=== PATIENT | male | born 1940 | race Caucasian/White ===

== ENCOUNTER 2019-03-13 16:46 | Inpatient (IN) | payer OTHER ==
[2019-03-13 17:33] LABS: ADD MAN DIFF? NO
[2019-03-13 17:34] LABS: BASOPHILS % 0.2 % (0.0-2.0); HEMATOCRIT 29.8 % (42.0-52.0); HEMOGLOBIN 9.4 g/dl (14.0-18.0); LYMPHOCYTES # 1.1 10^3/ul (0.8-2.9); LYMPHOCYTES % 5.1 % (15.0-51.0); MEAN CORPUSCULAR HEMOGLOBIN 24.9 pg (29.0-33.0); MEAN CORPUSCULAR HGB CONC 31.5 g/dl (32.0-37.0); MEAN CORPUSCULAR VOLUME 78.8 fl (82.0-101.0); MEAN PLATELET VOLUME 11.3 fl (7.4-10.4); MONOCYTE # 0.9 10^3/ul (0.3-0.9); MONOCYTES % 4.1 % (0.0-11.0); NEUTROPHIL # 19.4 10^3/ul (1.6-7.5); NEUTROPHILS % 88.3 % (39.0-77.0); PLATELET COUNT 265 10^3/UL (140-415); RED BLOOD COUNT 3.78 10^6/ul (4.70-6.10); RED CELL DISTRIBUTION WIDTH 18.7 % (11.5-14.5)
[2019-03-13] MEDS: ONDANSETRON 4 MG INJ IV ×2 (17:34→18:48)
[2019-03-13] MEDS: morphine 4 MG/ML VIAL IV (17:34)
[2019-03-13] MEDS: CEFTRIAXONE 1 GM/50 ML (PMX) 50 ML IVPB (17:46)
[2019-03-13] MEDS: SODIUM CHLORIDE 0.9% 1L BAG IV* (17:46)
[2019-03-13 17:52] LABS: ANION GAP 14 (5-13); BLOOD UREA NITROGEN 27 mg/dl (7-20); CALCIUM 9.4 mg/dl (8.4-10.2); CARBON DIOXIDE 18 mmol/L (21-31); CHLORIDE 104 mmol/L (97-110); CREATININE 2.74 mg/dl (0.61-1.24); GLUCOSE 124 mg/dl (70-220); SODIUM 136 mmol/L (135-144)
[2019-03-13 17:53] LABS: INR 1.15; PROTIME 14.8 Sec (11.9-14.9); PT RATIO 1.2
[2019-03-13 17:54] LABS: PARTIAL THROMBOPLASTIN TIME 41.7 Sec (23.0-35.0)
[2019-03-13 17:58] LABS: POTASSIUM 5.4 mmol/L (3.5-5.1)
[2019-03-13] MEDS: ACETAMINOPHEN 325 MG TAB PO (18:48)
[2019-03-13 19:10] LABS: LACTIC ACID 1.2 mmol/L (0.5-2.0)
[2019-03-13] MEDS ORDERED: ZOLPIDEM 5 MG TAB PO (23:00)
[2019-03-13 23:13] LABS: LACTIC ACID 1.1 mmol/L (0.5-2.0)
[2019-03-13 23:19] LABS: ADD UMIC YES; UR ASCORBIC ACID NEGATIVE (NEGATIVE); UR BILIRUBIN (Dip) NEGATIVE (NEGATIVE); UR BLOOD (Dip) 3+ mg/dL (NEGATIVE); UR CLARITY CLOUDY (CLEAR); UR COLOR RED (YELLOW); UR GLUCOSE (Dip) NEGATIVE (NEGATIVE); UR KETONES (Dip) NEGATIVE (NEGATIVE); UR LEUKOCYTE ESTERASE (Dip) 1+ Leu/ul (NEGATIVE); UR NITRITE (Dip) NEGATIVE (NEGATIVE); UR RBC > 182 /HPF (0-5); UR SPECIFIC GRAVITY (Dip) 1.004 (1.003-1.030); UR TOTAL PROTEIN (Dip) 1+ mg/dl (NEGATIVE); UR UROBILINOGEN (Dip) NEGATIVE (NEGATIVE); UR WBC 0 /HPF (0-5)
[2019-03-13] MEDS: DEXTROSE 5%-0.45% NACL 1,000 ML IV (23:54)
[2019-03-14 05:46] LABS: ADD MAN DIFF? NO
[2019-03-14 05:51] LABS: BASOPHIL # 0.1 10^3/ul (0.0-0.1); BASOPHILS % 0.5 % (0.0-2.0); EOSINOPHILS # 0.1 10^3/ul (0.0-0.5); EOSINOPHILS % 1.1 % (0.0-7.0); HEMATOCRIT 24.8 % (42.0-52.0); HEMOGLOBIN 7.6 g/dl (14.0-18.0); LYMPHOCYTES # 1.6 10^3/ul (0.8-2.9); LYMPHOCYTES % 14.8 % (15.0-51.0); MEAN CORPUSCULAR HEMOGLOBIN 24.6 pg (29.0-33.0); MEAN CORPUSCULAR HGB CONC 30.6 g/dl (32.0-37.0); MEAN CORPUSCULAR VOLUME 80.3 fl (82.0-101.0); MEAN PLATELET VOLUME 11.7 fl (7.4-10.4); MONOCYTE # 0.8 10^3/ul (0.3-0.9); MONOCYTES % 7.3 % (0.0-11.0); NEUTROPHIL # 8.2 10^3/ul (1.6-7.5); NEUTROPHILS % 74.2 % (39.0-77.0); PLATELET COUNT 178 10^3/UL (140-415); RED BLOOD COUNT 3.09 10^6/ul (4.70-6.10); RED CELL DISTRIBUTION WIDTH 19.1 % (11.5-14.5)
[2019-03-14 06:28] LABS: ANION GAP 7 (5-13); BLOOD UREA NITROGEN 24 mg/dl (7-20); CALCIUM 8.2 mg/dl (8.4-10.2); CARBON DIOXIDE 19 mmol/L (21-31); CHLORIDE 112 mmol/L (97-110); GLUCOSE 109 mg/dl (70-220); POTASSIUM 4.5 mmol/L (3.5-5.1); SODIUM 138 mmol/L (135-144)
[2019-03-14] MEDS ORDERED: CEFTRIAXONE 1 GM INJ IVPB (09:00)
[2019-03-14] MEDS: AMLODIPINE 10 MG TAB PO (09:00)
[2019-03-14] MEDS: DEXTROSE 5%-0.45% NACL 1,000 ML IV (13:09)
[2019-03-14] MEDS: ACETAMINOPHEN 325 MG TAB PO ×2 (14:14→23:26)
[2019-03-14] MEDS: CEFTRIAXONE 1 GM/NS 50 ML IVPB (16:27)
[2019-03-15] MEDS ORDERED: VANCOMYCIN IV PER PHARMACY XX (01:30)
[2019-03-15] MEDS: DEXTROSE 5%-0.45% NACL 1,000 ML IV ×2 (01:40→03:07)
[2019-03-15] MEDS: VANCOMYCIN HCL 1.75 GM in SOD CHLORIDE 0.9% 500 ML IVPB (03:06)
[2019-03-15 06:05] LABS: ADD MAN DIFF? NO
[2019-03-15 06:07] LABS: BASOPHIL # 0.1 10^3/ul (0.0-0.1); BASOPHILS % 0.6 % (0.0-2.0); EOSINOPHILS # 0.2 10^3/ul (0.0-0.5); EOSINOPHILS % 2.8 % (0.0-7.0); HEMATOCRIT 26.8 % (42.0-52.0); HEMOGLOBIN 8.2 g/dl (14.0-18.0); LYMPHOCYTES # 1.3 10^3/ul (0.8-2.9); MEAN CORPUSCULAR HEMOGLOBIN 25.1 pg (29.0-33.0); MEAN CORPUSCULAR HGB CONC 30.6 g/dl (32.0-37.0); MEAN PLATELET VOLUME 12.6 fl (7.4-10.4); MONOCYTE # 0.6 10^3/ul (0.3-0.9); MONOCYTES % 7.2 % (0.0-11.0); NEUTROPHIL # 5.6 10^3/ul (1.6-7.5); NEUTROPHILS % 69.8 % (39.0-77.0); PLATELET COUNT 203 10^3/UL (140-415); RED BLOOD COUNT 3.27 10^6/ul (4.70-6.10); RED CELL DISTRIBUTION WIDTH 18.6 % (11.5-14.5)
[2019-03-15] MEDS: ACETAMINOPHEN 325 MG TAB PO (07:39)
[2019-03-15] MEDS: AMLODIPINE 10 MG TAB PO (09:33)
[2019-03-15 15:28] LABS: IMMEDIATE SPIN CROSSMATCH 1 1
[2019-03-15] MEDS: ALPRAZOLAM 0.5 MG TAB PO (16:42)
[2019-03-15] MEDS: CEFTRIAXONE 1 GM/NS 50 ML IVPB (18:36)
[2019-03-16] MEDS: VANCOMYCIN 750 MG (PMX) 250 ML IVPB (03:11)
[2019-03-16] MEDS: DEXTROSE 5%-0.45% NACL 1,000 ML IV ×3 (03:11→22:07)
[2019-03-16 05:26] LABS: ADD MAN DIFF? NO
[2019-03-16 05:35] LABS: BASOPHILS % 0.5 % (0.0-2.0); EOSINOPHILS # 0.2 10^3/ul (0.0-0.5); EOSINOPHILS % 2.6 % (0.0-7.0); HEMATOCRIT 28.6 % (42.0-52.0); HEMOGLOBIN 8.9 g/dl (14.0-18.0); LYMPHOCYTES # 1.5 10^3/ul (0.8-2.9); LYMPHOCYTES % 16.8 % (15.0-51.0); MEAN CORPUSCULAR HEMOGLOBIN 24.9 pg (29.0-33.0); MEAN CORPUSCULAR HGB CONC 31.1 g/dl (32.0-37.0); MEAN CORPUSCULAR VOLUME 80.1 fl (82.0-101.0); MEAN PLATELET VOLUME 11.7 fl (7.4-10.4); MONOCYTE # 0.6 10^3/ul (0.3-0.9); MONOCYTES % 7.1 % (0.0-11.0); NEUTROPHILS % 68.7 % (39.0-77.0); PLATELET COUNT 232 10^3/UL (140-415); RED BLOOD COUNT 3.57 10^6/ul (4.70-6.10); RED CELL DISTRIBUTION WIDTH 18.4 % (11.5-14.5)
[2019-03-16 05:35] LABS: WHITE BLOOD COUNT 8.8 10^3/ul (4.8-10.8)
[2019-03-16 06:03] LABS: ANION GAP 9 (5-13); BLOOD UREA NITROGEN 14 mg/dl (7-20); CARBON DIOXIDE 25 mmol/L (21-31); CHLORIDE 107 mmol/L (97-110); CREATININE 1.22 mg/dl (0.61-1.24); GLUCOSE 110 mg/dl (70-220); POTASSIUM 4.5 mmol/L (3.5-5.1); SODIUM 141 mmol/L (135-144)
[2019-03-16] MEDS: AMLODIPINE 10 MG TAB PO (08:49)
[2019-03-16] MEDS: NA PHOSPHATE/BIPHOS 133 ML ENEMA PR (10:27)
[2019-03-16] MEDS: LACTULOSE 30ML CUP PO ×2 (10:27→10:28)
[2019-03-16] MEDS: CEFTRIAXONE 1 GM/NS 50 ML IVPB (16:03)
[2019-03-16] MEDS: VANCOMYCIN 1 GM 250 ML IVPB (22:07)
[2019-03-17 05:25] LABS: ADD MAN DIFF? NO
[2019-03-17 05:35] LABS: BASOPHIL # 0.1 10^3/ul (0.0-0.1); BASOPHILS % 0.8 % (0.0-2.0); EOSINOPHILS # 0.3 10^3/ul (0.0-0.5); EOSINOPHILS % 3.5 % (0.0-7.0); HEMATOCRIT 28.6 % (42.0-52.0); HEMOGLOBIN 8.9 g/dl (14.0-18.0); LYMPHOCYTES # 1.6 10^3/ul (0.8-2.9); LYMPHOCYTES % 19.6 % (15.0-51.0); MEAN CORPUSCULAR HEMOGLOBIN 25.3 pg (29.0-33.0); MEAN CORPUSCULAR HGB CONC 31.1 g/dl (32.0-37.0); MEAN CORPUSCULAR VOLUME 81.3 fl (82.0-101.0); MEAN PLATELET VOLUME 11.8 fl (7.4-10.4); MONOCYTE # 0.6 10^3/ul (0.3-0.9); MONOCYTES % 8.1 % (0.0-11.0); NEUTROPHILS % 63.5 % (39.0-77.0); PLATELET COUNT 237 10^3/UL (140-415); RED BLOOD COUNT 3.52 10^6/ul (4.70-6.10); RED CELL DISTRIBUTION WIDTH 18.4 % (11.5-14.5)
[2019-03-17 05:35] LABS: WHITE BLOOD COUNT 7.9 10^3/ul (4.8-10.8)
[2019-03-17] MEDS: DEXTROSE 5%-0.45% NACL 1,000 ML IV (07:00)
[2019-03-17] MEDS: AMLODIPINE 10 MG TAB PO (08:42)
[2019-03-17] MEDS: CEFTRIAXONE 1 GM/NS 50 ML IVPB (15:27)
== END 2019-03-17 18:10 | disposition home health service (06) | DRG 696 ==
LOC: E/R 16:46 → PP2 18:03
PROC: 30233N1 Transfusion of Nonautologous Red Blood Cells into Peripheral Vein, Percutaneous Approach (ICD-10-PCS; principal; 2019-03-15)
DX: R31.0 Gross hematuria (principal); D62 Acute posthemorrhagic anemia; N45.1 Epididymitis; N17.9 Acute kidney failure, unspecified; Z90.79 Acquired absence of other genital organ(s); I10 Essential (primary) hypertension; M10.9 Gout, unspecified
CPT/HCPCS: 36415; 36430; 76870; 80048; 81001; 83605; 85025; 85610; 85730; 86644; 86850; 86870; 86880; 86900; 86901; 86902; 86906; 86920; 86971; 87040-91; 87081; 87086; 96374; 96375; 99285-25

== ENCOUNTER 2019-03-19 00:46 | Emergency (ER) | payer OTHER | END 2019-03-19 01:59 | disposition home or self-care (01) | LOC: E/R 00:46 | DX: R31.0 Gross hematuria (principal); I10 Essential (primary) hypertension | CPT/HCPCS: 99283 ==

== ENCOUNTER 2019-03-19 01:55 | Inpatient (IN) | payer OTHER ==
[2019-03-19 02:55] LABS: ADD MAN DIFF? NO
[2019-03-19] MEDS: morphine 4 MG/ML VIAL IV (02:55)
[2019-03-19] MEDS: ONDANSETRON 4 MG INJ IV (02:55)
[2019-03-19 02:58] LABS: WHITE BLOOD COUNT 17.7 10^3/ul (4.8-10.8)
[2019-03-19 02:58] LABS: BASOPHIL # 0.1 10^3/ul (0.0-0.1); BASOPHILS % 0.3 % (0.0-2.0); EOSINOPHILS # 0.1 10^3/ul (0.0-0.5); EOSINOPHILS % 0.7 % (0.0-7.0); HEMATOCRIT 29.1 % (42.0-52.0); HEMOGLOBIN 9.2 g/dl (14.0-18.0); LYMPHOCYTES # 1.8 10^3/ul (0.8-2.9); LYMPHOCYTES % 10.1 % (15.0-51.0); MEAN CORPUSCULAR HEMOGLOBIN 25.2 pg (29.0-33.0); MEAN CORPUSCULAR HGB CONC 31.6 g/dl (32.0-37.0); MEAN CORPUSCULAR VOLUME 79.7 fl (82.0-101.0); MEAN PLATELET VOLUME 11.4 fl (7.4-10.4); MONOCYTES % 5.4 % (0.0-11.0); NEUTROPHILS % 78.8 % (39.0-77.0); PLATELET COUNT 279 10^3/UL (140-415); RED BLOOD COUNT 3.65 10^6/ul (4.70-6.10); RED CELL DISTRIBUTION WIDTH 18.6 % (11.5-14.5)
[2019-03-19] MEDS ORDERED: ONDANSETRON 4 MG INJ IV (03:00)
[2019-03-19] MEDS ORDERED: ACETAMINOPHEN 325 MG TAB PO (03:00)
[2019-03-19 03:16] LABS: ANION GAP 13 (5-13); BLOOD UREA NITROGEN 36 mg/dl (7-20); CALCIUM 9.5 mg/dl (8.4-10.2); CARBON DIOXIDE 19 mmol/L (21-31); CHLORIDE 105 mmol/L (97-110); CREATININE 2.18 mg/dl (0.61-1.24); GLUCOSE 110 mg/dl (70-220); SODIUM 137 mmol/L (135-144)
[2019-03-19 03:17] LABS: PROTIME 14.3 Sec (11.9-14.9); PT RATIO 1.1
[2019-03-19 03:18] LABS: PARTIAL THROMBOPLASTIN TIME 40.8 Sec (23.0-35.0)
[2019-03-19] MEDS ORDERED: SODIUM CHLORIDE 0.9% 1L IRRIG IRR ×3 (03:30→05:00)
[2019-03-19 03:31] LABS: POTASSIUM 4.8 mmol/L (3.5-5.1)
[2019-03-19] MEDS: HYDROmorphONE 0.5 MG/0.5 ML SYG IV (03:36)
[2019-03-19 03:42] LABS: ADD UMIC YES; UR ASCORBIC ACID NEGATIVE (NEGATIVE); UR BACTERIA FEW /HPF (NONE SEEN); UR BILIRUBIN (Dip) NEGATIVE (NEGATIVE); UR BLOOD (Dip) 3+ mg/dL (NEGATIVE); UR CLARITY TURBID (CLEAR); UR COLOR RED (YELLOW); UR GLUCOSE (Dip) 2+ mg/dL (NEGATIVE); UR KETONES (Dip) NEGATIVE (NEGATIVE); UR LEUKOCYTE ESTERASE (Dip) NEGATIVE Leu/ul (NEGATIVE); UR NITRITE (Dip) NEGATIVE (NEGATIVE); UR RBC > 182 /HPF (0-5); UR SPECIFIC GRAVITY (Dip) 1.034 (1.003-1.030); UR TOTAL PROTEIN (Dip) 3+ mg/dl (NEGATIVE); UR UROBILINOGEN (Dip) NEGATIVE (NEGATIVE); UR WBC 13 /HPF (0-5)
[2019-03-19] MEDS: LORAZEPAM 2 MG INJ IV (04:11)
[2019-03-19] MEDS ORDERED: SODIUM CHLORIDE 0.9% IRR (05:30)
[2019-03-19] MEDS ORDERED: CEFTRIAXONE 1 GM/50 ML (PMX) 50 ML IVPB (08:30)
[2019-03-19] MEDS: CEFTRIAXONE 1 GM/50 ML (PMX) 50 ML IVPB (09:21)
[2019-03-19] MEDS: morphine 2 MG INJ IV (09:22)
[2019-03-19] MEDS: ALLOPURINOL 300 MG TAB PO (09:23)
[2019-03-19] MEDS: AMLODIPINE 10 MG TAB PO (09:24)
[2019-03-19] MEDS: FINASTERIDE 5 MG TAB PO (09:24)
[2019-03-19] MEDS: LISINOPRIL 20 MG TAB PO (09:24)
[2019-03-19 10:05] LABS: INR 1.19; PROTIME 15.2 Sec (11.9-14.9); PT RATIO 1.2
[2019-03-19 10:06] LABS: PARTIAL THROMBOPLASTIN TIME 40.1 Sec (23.0-35.0)
[2019-03-19] MEDS: BELLADONNA ALK/OPIUM SUPP PR (10:28)
[2019-03-19 16:00] LABS: ADD MAN DIFF? NO
[2019-03-19 16:02] LABS: BASOPHILS % 0.3 % (0.0-2.0); EOSINOPHILS # 0.2 10^3/ul (0.0-0.5); EOSINOPHILS % 1.3 % (0.0-7.0); HEMATOCRIT 26.3 % (42.0-52.0); HEMOGLOBIN 8.1 g/dl (14.0-18.0); LYMPHOCYTES # 2.1 10^3/ul (0.8-2.9); LYMPHOCYTES % 17.6 % (15.0-51.0); MEAN CORPUSCULAR HEMOGLOBIN 25.2 pg (29.0-33.0); MEAN CORPUSCULAR HGB CONC 30.8 g/dl (32.0-37.0); MEAN CORPUSCULAR VOLUME 81.9 fl (82.0-101.0); MEAN PLATELET VOLUME 11.7 fl (7.4-10.4); MONOCYTE # 0.9 10^3/ul (0.3-0.9); MONOCYTES % 7.3 % (0.0-11.0); NEUTROPHIL # 8.4 10^3/ul (1.6-7.5); NEUTROPHILS % 69.9 % (39.0-77.0); PLATELET COUNT 214 10^3/UL (140-415); RED BLOOD COUNT 3.21 10^6/ul (4.70-6.10); RED CELL DISTRIBUTION WIDTH 18.8 % (11.5-14.5)
[2019-03-19 16:02] LABS: WHITE BLOOD COUNT 12.1 10^3/ul (4.8-10.8)
[2019-03-19] MEDS: TAMSULOSIN (SR) 0.4 MG CAP PO (20:16)
[2019-03-20 08:40] LABS: ADD MAN DIFF? NO
[2019-03-20 08:48] LABS: BASOPHILS % 0.6 % (0.0-2.0); EOSINOPHILS # 0.2 10^3/ul (0.0-0.5); EOSINOPHILS % 3.5 % (0.0-7.0); HEMATOCRIT 25.3 % (42.0-52.0); HEMOGLOBIN 7.8 g/dl (14.0-18.0); LYMPHOCYTES # 1.2 10^3/ul (0.8-2.9); LYMPHOCYTES % 17.7 % (15.0-51.0); MEAN CORPUSCULAR HEMOGLOBIN 25.6 pg (29.0-33.0); MEAN CORPUSCULAR HGB CONC 30.8 g/dl (32.0-37.0); MEAN PLATELET VOLUME 11.7 fl (7.4-10.4); MONOCYTE # 0.5 10^3/ul (0.3-0.9); MONOCYTES % 7.3 % (0.0-11.0); NEUTROPHIL # 4.3 10^3/ul (1.6-7.5); NEUTROPHILS % 66.9 % (39.0-77.0); PLATELET COUNT 201 10^3/UL (140-415); RED BLOOD COUNT 3.05 10^6/ul (4.70-6.10); RED CELL DISTRIBUTION WIDTH 18.7 % (11.5-14.5)
[2019-03-20 08:48] LABS: WHITE BLOOD COUNT 6.5 10^3/ul (4.8-10.8)
[2019-03-20 09:05] LABS: PROTIME 14.1 Sec (11.9-14.9)
[2019-03-20 09:06] LABS: PARTIAL THROMBOPLASTIN TIME 42.1 Sec (23.0-35.0)
[2019-03-20 09:19] LABS: ANION GAP 7 (5-13); BLOOD UREA NITROGEN 39 mg/dl (7-20); CALCIUM 8.8 mg/dl (8.4-10.2); CARBON DIOXIDE 23 mmol/L (21-31); CHLORIDE 107 mmol/L (97-110); CREATININE 2.02 mg/dl (0.61-1.24); GLUCOSE 100 mg/dl (70-220); POTASSIUM 5.2 mmol/L (3.5-5.1); SODIUM 137 mmol/L (135-144)
[2019-03-20] MEDS: CEFTRIAXONE 1 GM/50 ML (PMX) 50 ML IVPB (09:23)
[2019-03-20] MEDS: FINASTERIDE 5 MG TAB PO (09:24)
[2019-03-20] MEDS: LISINOPRIL 20 MG TAB PO (09:24)
[2019-03-20] MEDS: ALLOPURINOL 300 MG TAB PO (09:24)
[2019-03-20] MEDS: AMLODIPINE 10 MG TAB PO (09:24)
[2019-03-20] MEDS: LACTULOSE 30ML CUP PO (12:07)
[2019-03-20] MEDS: TAMSULOSIN (SR) 0.4 MG CAP PO (20:18)
[2019-03-20] MEDS: ALPRAZOLAM 0.5 MG TAB PO (22:09)
[2019-03-20] MEDS ORDERED: NA POLYST SULFON 15 GM/60 ML BTL PO (22:30)
[2019-03-20] MEDS: SODIUM POLYSTYRENE 15 GM KIT (POWDER + SORBITOL) PO (22:57)
[2019-03-21] MEDS: ALPRAZOLAM 0.5 MG TAB PO (02:30)
[2019-03-21 06:15] LABS: ADD MAN DIFF? NO
[2019-03-21 06:19] LABS: BASOPHILS % 0.6 % (0.0-2.0); EOSINOPHILS # 0.2 10^3/ul (0.0-0.5); EOSINOPHILS % 2.8 % (0.0-7.0); HEMATOCRIT 26.2 % (42.0-52.0); LYMPHOCYTES # 1.5 10^3/ul (0.8-2.9); LYMPHOCYTES % 21.9 % (15.0-51.0); MEAN CORPUSCULAR HEMOGLOBIN 25.2 pg (29.0-33.0); MEAN CORPUSCULAR HGB CONC 30.5 g/dl (32.0-37.0); MEAN CORPUSCULAR VOLUME 82.6 fl (82.0-101.0); MEAN PLATELET VOLUME 11.5 fl (7.4-10.4); MONOCYTE # 0.6 10^3/ul (0.3-0.9); MONOCYTES % 8.7 % (0.0-11.0); NEUTROPHIL # 4.4 10^3/ul (1.6-7.5); NEUTROPHILS % 63.4 % (39.0-77.0); PLATELET COUNT 210 10^3/UL (140-415); RED BLOOD COUNT 3.17 10^6/ul (4.70-6.10); RED CELL DISTRIBUTION WIDTH 18.5 % (11.5-14.5)
[2019-03-21 06:19] LABS: WHITE BLOOD COUNT 6.9 10^3/ul (4.8-10.8)
[2019-03-21 08:17] LABS: AHG CROSSMATCH 1 2
[2019-03-21] MEDS: LACTULOSE 30ML CUP PO (09:00)
[2019-03-21] MEDS: LISINOPRIL 20 MG TAB PO (09:00)
[2019-03-21] MEDS: FINASTERIDE 5 MG TAB PO (09:00)
[2019-03-21] MEDS: AMLODIPINE 10 MG TAB PO (09:00)
[2019-03-21] MEDS: CEFTRIAXONE 1 GM/50 ML (PMX) 50 ML IVPB (09:00)
[2019-03-21] MEDS: ALLOPURINOL 300 MG TAB PO (09:00)
[2019-03-21] MEDS ORDERED: LIDOCAINE 1% (MDV) 20 ML INJ (09:56)
[2019-03-21] MEDS ORDERED: MIDAZOLAM 1 MG/ML 2 ML INJ (09:56)
[2019-03-21] MEDS ORDERED: ROCURONIUM 50 MG INJ (09:56)
[2019-03-21] MEDS ORDERED: ETOMIDATE 20 MG INJ (09:56)
[2019-03-21] MEDS ORDERED: HYDROmorphONE 1 MG/5 ML IV SYRINGE IV ×2 (10:00)
[2019-03-21] MEDS ORDERED: DIPHENHYDRAMINE 50 MG INJ IV (10:00)
[2019-03-21] MEDS ORDERED: MEPERIDINE 25 MG INJ IV (10:00)
[2019-03-21] MEDS ORDERED: PHENYLephrine (100 MCG/ML) 10ML SYG (10:09)
[2019-03-21] MEDS ORDERED: CIPROFLOXACIN 400MG/D5W 200 ML (10:12)
[2019-03-21] MEDS ORDERED: ONDANSETRON 4 MG INJ (10:35)
[2019-03-21] MEDS ORDERED: EPHEDrine 25 MG/5 ML SYG (10:35)
[2019-03-21] MEDS ORDERED: HYDROCODONE/APAP (5/325) TAB PO (11:30)
[2019-03-21 11:54] LABS: ADD MAN DIFF? NO
[2019-03-21 11:55] LABS: WHITE BLOOD COUNT 7.9 10^3/ul (4.8-10.8)
[2019-03-21 11:55] LABS: BASOPHIL # 0.1 10^3/ul (0.0-0.1); BASOPHILS % 0.8 % (0.0-2.0); EOSINOPHILS # 0.2 10^3/ul (0.0-0.5); EOSINOPHILS % 2.2 % (0.0-7.0); HEMATOCRIT 27.9 % (42.0-52.0); HEMOGLOBIN 8.4 g/dl (14.0-18.0); LYMPHOCYTES # 2.3 10^3/ul (0.8-2.9); LYMPHOCYTES % 28.6 % (15.0-51.0); MEAN CORPUSCULAR HEMOGLOBIN 25.3 pg (29.0-33.0); MEAN CORPUSCULAR HGB CONC 30.1 g/dl (32.0-37.0); MEAN PLATELET VOLUME 11.5 fl (7.4-10.4); MONOCYTE # 0.7 10^3/ul (0.3-0.9); MONOCYTES % 8.5 % (0.0-11.0); NEUTROPHIL # 4.4 10^3/ul (1.6-7.5); PLATELET COUNT 194 10^3/UL (140-415); RED BLOOD COUNT 3.32 10^6/ul (4.70-6.10)
[2019-03-21] MEDS: HYDROmorphONE 1 MG/5 ML IV SYRINGE IV (12:10)
[2019-03-21] MEDS: ONDANSETRON 4 MG INJ IV (12:11)
[2019-03-21 12:15] LABS: ANION GAP 9 (5-13); BLOOD UREA NITROGEN 34 mg/dl (7-20); CALCIUM 7.8 mg/dl (8.4-10.2); CARBON DIOXIDE 19 mmol/L (21-31); CHLORIDE 112 mmol/L (97-110); CREATININE 1.82 mg/dl (0.61-1.24); GLUCOSE 106 mg/dl (70-220); POTASSIUM 4.3 mmol/L (3.5-5.1); SODIUM 140 mmol/L (135-144)
[2019-03-21] MEDS: DEXTROSE 5%-0.45% NACL 1,000 ML IV (13:36)
[2019-03-21] MEDS: DOCUSATE SODIUM 100 MG CAP PO (21:32)
[2019-03-21] MEDS: TAMSULOSIN (SR) 0.4 MG CAP PO (21:32)
[2019-03-22] MEDS: ALPRAZOLAM 0.5 MG TAB PO ×2 (00:30→20:38)
[2019-03-22 06:21] LABS: ADD MAN DIFF? NO
[2019-03-22 06:26] LABS: WHITE BLOOD COUNT 5.9 10^3/ul (4.8-10.8)
[2019-03-22 06:26] LABS: BASOPHILS % 0.7 % (0.0-2.0); EOSINOPHILS # 0.1 10^3/ul (0.0-0.5); EOSINOPHILS % 2.4 % (0.0-7.0); HEMATOCRIT 26.8 % (42.0-52.0); HEMOGLOBIN 8.2 g/dl (14.0-18.0); LYMPHOCYTES # 1.1 10^3/ul (0.8-2.9); LYMPHOCYTES % 18.9 % (15.0-51.0); MEAN CORPUSCULAR HGB CONC 30.6 g/dl (32.0-37.0); MEAN CORPUSCULAR VOLUME 81.7 fl (82.0-101.0); MEAN PLATELET VOLUME 11.7 fl (7.4-10.4); MONOCYTE # 0.5 10^3/ul (0.3-0.9); MONOCYTES % 7.9 % (0.0-11.0); NEUTROPHILS % 68.2 % (39.0-77.0); PLATELET COUNT 175 10^3/UL (140-415); RED BLOOD COUNT 3.28 10^6/ul (4.70-6.10); RED CELL DISTRIBUTION WIDTH 18.1 % (11.5-14.5)
[2019-03-22 06:50] LABS: ANION GAP 9 (5-13); BLOOD UREA NITROGEN 28 mg/dl (7-20); CALCIUM 8.5 mg/dl (8.4-10.2); CARBON DIOXIDE 23 mmol/L (21-31); CHLORIDE 109 mmol/L (97-110); CREATININE 1.57 mg/dl (0.61-1.24); GLUCOSE 112 mg/dl (70-220); POTASSIUM 4.4 mmol/L (3.5-5.1); SODIUM 141 mmol/L (135-144)
[2019-03-22] MEDS: CEFTRIAXONE 1 GM/50 ML (PMX) 50 ML IVPB ×2 (08:36→09:31)
[2019-03-22] MEDS: AMLODIPINE 10 MG TAB PO (08:37)
[2019-03-22] MEDS: ALLOPURINOL 300 MG TAB PO (08:37)
[2019-03-22] MEDS: LACTULOSE 30ML CUP PO (08:37)
[2019-03-22] MEDS: MAGNESIUM HYDROXIDE 30ML CUP PO (08:37)
[2019-03-22] MEDS: FINASTERIDE 5 MG TAB PO (08:37)
[2019-03-22] MEDS: LISINOPRIL 20 MG TAB PO (08:38)
[2019-03-22] MEDS: DOCUSATE SODIUM 100 MG CAP PO ×2 (08:38→20:38)
[2019-03-22] MEDS: DEXTROSE 5%-0.45% NACL 1,000 ML IV (09:38)
[2019-03-22 12:50] LABS: ANION GAP 8 (5-13); BLOOD UREA NITROGEN 24 mg/dl (7-20); CALCIUM 8.4 mg/dl (8.4-10.2); CARBON DIOXIDE 24 mmol/L (21-31); CHLORIDE 109 mmol/L (97-110); CREATININE 1.44 mg/dl (0.61-1.24); GLUCOSE 125 mg/dl (70-220); POTASSIUM 4.9 mmol/L (3.5-5.1); SODIUM 141 mmol/L (135-144)
[2019-03-22] MEDS: TAMSULOSIN (SR) 0.4 MG CAP PO (20:38)
[2019-03-23 07:55] LABS: ADD MAN DIFF? NO
[2019-03-23 08:05] LABS: WHITE BLOOD COUNT 6.1 10^3/ul (4.8-10.8)
[2019-03-23 08:05] LABS: BASOPHILS % 0.5 % (0.0-2.0); EOSINOPHILS # 0.2 10^3/ul (0.0-0.5); EOSINOPHILS % 2.4 % (0.0-7.0); HEMATOCRIT 26.3 % (42.0-52.0); HEMOGLOBIN 8.1 g/dl (14.0-18.0); LYMPHOCYTES # 1.4 10^3/ul (0.8-2.9); MEAN CORPUSCULAR HEMOGLOBIN 25.2 pg (29.0-33.0); MEAN CORPUSCULAR HGB CONC 30.8 g/dl (32.0-37.0); MEAN CORPUSCULAR VOLUME 81.9 fl (82.0-101.0); MEAN PLATELET VOLUME 11.6 fl (7.4-10.4); MONOCYTE # 0.5 10^3/ul (0.3-0.9); MONOCYTES % 8.3 % (0.0-11.0); NEUTROPHILS % 65.3 % (39.0-77.0); PLATELET COUNT 160 10^3/UL (140-415); RED BLOOD COUNT 3.21 10^6/ul (4.70-6.10); RED CELL DISTRIBUTION WIDTH 18.2 % (11.5-14.5)
[2019-03-23] MEDS: DEXTROSE 5%-0.45% NACL 1,000 ML IV ×3 (08:12→22:56)
[2019-03-23] MEDS: CEFTRIAXONE 1 GM/50 ML (PMX) 50 ML IVPB (08:12)
[2019-03-23 08:18] LABS: ANION GAP 8 (5-13); BLOOD UREA NITROGEN 19 mg/dl (7-20); CALCIUM 8.7 mg/dl (8.4-10.2); CARBON DIOXIDE 22 mmol/L (21-31); CHLORIDE 113 mmol/L (97-110); CREATININE 1.34 mg/dl (0.61-1.24); GLUCOSE 101 mg/dl (70-220); POTASSIUM 4.5 mmol/L (3.5-5.1); SODIUM 143 mmol/L (135-144)
[2019-03-23] MEDS: LISINOPRIL 20 MG TAB PO (09:00)
[2019-03-23] MEDS: ALLOPURINOL 300 MG TAB PO (09:00)
[2019-03-23] MEDS: DOCUSATE SODIUM 100 MG CAP PO ×2 (09:00→22:09)
[2019-03-23] MEDS: FINASTERIDE 5 MG TAB PO (09:00)
[2019-03-23] MEDS: AMLODIPINE 10 MG TAB PO (09:00)
[2019-03-23] MEDS: LACTULOSE 30ML CUP PO (09:00)
[2019-03-23 09:03] LABS: ADD MAN DIFF? NO
[2019-03-23 09:04] LABS: BASOPHILS % 0.5 % (0.0-2.0); EOSINOPHILS # 0.2 10^3/ul (0.0-0.5); EOSINOPHILS % 2.5 % (0.0-7.0); HEMATOCRIT 26.6 % (42.0-52.0); HEMOGLOBIN 8.1 g/dl (14.0-18.0); LYMPHOCYTES # 1.5 10^3/ul (0.8-2.9); MEAN CORPUSCULAR HEMOGLOBIN 25.1 pg (29.0-33.0); MEAN CORPUSCULAR HGB CONC 30.5 g/dl (32.0-37.0); MEAN CORPUSCULAR VOLUME 82.4 fl (82.0-101.0); MONOCYTE # 0.5 10^3/ul (0.3-0.9); MONOCYTES % 7.2 % (0.0-11.0); NEUTROPHIL # 4.2 10^3/ul (1.6-7.5); NEUTROPHILS % 65.5 % (39.0-77.0); PLATELET COUNT 169 10^3/UL (140-415); RED BLOOD COUNT 3.23 10^6/ul (4.70-6.10); RED CELL DISTRIBUTION WIDTH 18.1 % (11.5-14.5)
[2019-03-23 09:04] LABS: WHITE BLOOD COUNT 6.4 10^3/ul (4.8-10.8)
[2019-03-23 09:34] LABS: PARTIAL THROMBOPLASTIN TIME 38.5 Sec (23.0-35.0)
[2019-03-23] MEDS: morphine 2 MG INJ IV ×2 (10:03→11:33)
[2019-03-23 10:57] LABS: COLLAGEN/EPI 63 Secs. (51-198)
[2019-03-23] MEDS ORDERED: BELLADONNA ALK/OPIUM SUPP PR (11:30)
[2019-03-23] MEDS ORDERED: AMINOCAPROIC ACID IVPB (11:30)
[2019-03-23] MEDS ORDERED: SOD CHLORIDE 0.9% IVPB (11:30)
[2019-03-23] MEDS: AMINOCAPROIC ACID IVPB (11:59)
[2019-03-23] MEDS: SOD CHLORIDE 0.9% IVPB (11:59)
[2019-03-23] MEDS: AMINOCAPROIC ACID IV* (16:14)
[2019-03-23] MEDS: SOD CHLORIDE 0.9% IV* (16:14)
[2019-03-23] MEDS ORDERED: morphine 2 MG INJ IV (16:30)
[2019-03-23] MEDS: BELLADONNA ALK/OPIUM SUPP PR (17:32)
[2019-03-23] MEDS: CIPROFLOXACIN 500 MG TAB PO (17:36)
[2019-03-23 17:42] LABS: HEMATOCRIT 29.6 % (42.0-52.0); HEMOGLOBIN 9.3 g/dl (14.0-18.0)
[2019-03-23 20:32] LABS: D-DIMER 1404.13 ng/ml (<460)
[2019-03-23] MEDS: TAMSULOSIN (SR) 0.4 MG CAP PO (22:09)
[2019-03-24 05:10] LABS: ADD MAN DIFF? NO
[2019-03-24 05:13] LABS: BASOPHILS % 0.3 % (0.0-2.0); EOSINOPHILS # 0.2 10^3/ul (0.0-0.5); EOSINOPHILS % 2.6 % (0.0-7.0); HEMATOCRIT 25.1 % (42.0-52.0); HEMOGLOBIN 7.8 g/dl (14.0-18.0); LYMPHOCYTES # 1.6 10^3/ul (0.8-2.9); LYMPHOCYTES % 18.7 % (15.0-51.0); MEAN CORPUSCULAR HEMOGLOBIN 25.8 pg (29.0-33.0); MEAN CORPUSCULAR HGB CONC 31.1 g/dl (32.0-37.0); MEAN CORPUSCULAR VOLUME 83.1 fl (82.0-101.0); MEAN PLATELET VOLUME 11.3 fl (7.4-10.4); MONOCYTE # 0.6 10^3/ul (0.3-0.9); MONOCYTES % 6.8 % (0.0-11.0); NEUTROPHIL # 6.1 10^3/ul (1.6-7.5); NEUTROPHILS % 70.3 % (39.0-77.0); PLATELET COUNT 137 10^3/UL (140-415); RED BLOOD COUNT 3.02 10^6/ul (4.70-6.10)
[2019-03-24 05:13] LABS: WHITE BLOOD COUNT 8.7 10^3/ul (4.8-10.8)
[2019-03-24 05:33] LABS: ANION GAP 7 (5-13); BLOOD UREA NITROGEN 23 mg/dl (7-20); CALCIUM 8.3 mg/dl (8.4-10.2); CARBON DIOXIDE 21 mmol/L (21-31); CHLORIDE 110 mmol/L (97-110); CREATININE 1.83 mg/dl (0.61-1.24); GLUCOSE 109 mg/dl (70-220); POTASSIUM 4.7 mmol/L (3.5-5.1); SODIUM 138 mmol/L (135-144)
[2019-03-24 05:35] LABS: INR 1.13; PARTIAL THROMBOPLASTIN TIME 38.3 Sec (23.0-35.0); PROTIME 14.6 Sec (11.9-14.9); PT RATIO 1.1
[2019-03-24] MEDS: CIPROFLOXACIN 500 MG TAB PO ×2 (06:05→17:59)
[2019-03-24] MEDS: LACTULOSE 30ML CUP PO (08:51)
[2019-03-24] MEDS: ALLOPURINOL 300 MG TAB PO (08:52)
[2019-03-24] MEDS: LISINOPRIL 20 MG TAB PO (08:52)
[2019-03-24] MEDS: AMLODIPINE 10 MG TAB PO (08:52)
[2019-03-24] MEDS: FINASTERIDE 5 MG TAB PO (08:52)
[2019-03-24] MEDS: DOCUSATE SODIUM 100 MG CAP PO ×2 (08:52→20:42)
[2019-03-24] MEDS: DEXTROSE 5%-0.45% NACL 1,000 ML IV (10:46)
[2019-03-24] MEDS: ACETAMINOPHEN 325 MG TAB PO (15:57)
[2019-03-24 19:46] LABS: AHG CROSSMATCH 1 6
[2019-03-24] MEDS: TAMSULOSIN (SR) 0.4 MG CAP PO (20:42)
[2019-03-24] MEDS: ALPRAZOLAM 0.5 MG TAB PO (22:59)
[2019-03-25 05:57] LABS: ADD MAN DIFF? NO
[2019-03-25] MEDS: CIPROFLOXACIN 500 MG TAB PO ×2 (06:15→18:34)
[2019-03-25 06:24] LABS: BASOPHILS % 0.5 % (0.0-2.0); EOSINOPHILS # 0.3 10^3/ul (0.0-0.5); EOSINOPHILS % 4.5 % (0.0-7.0); HEMATOCRIT 30.4 % (42.0-52.0); HEMOGLOBIN 9.6 g/dl (14.0-18.0); LYMPHOCYTES # 1.4 10^3/ul (0.8-2.9); LYMPHOCYTES % 24.2 % (15.0-51.0); MEAN CORPUSCULAR HEMOGLOBIN 26.4 pg (29.0-33.0); MEAN CORPUSCULAR HGB CONC 31.6 g/dl (32.0-37.0); MEAN CORPUSCULAR VOLUME 83.7 fl (82.0-101.0); MEAN PLATELET VOLUME 12.4 fl (7.4-10.4); MONOCYTE # 0.4 10^3/ul (0.3-0.9); MONOCYTES % 6.8 % (0.0-11.0); NEUTROPHIL # 3.5 10^3/ul (1.6-7.5); NEUTROPHILS % 62.8 % (39.0-77.0); PLATELET COUNT 127 10^3/UL (140-415); RED BLOOD COUNT 3.63 10^6/ul (4.70-6.10); RED CELL DISTRIBUTION WIDTH 16.8 % (11.5-14.5)
[2019-03-25 06:24] LABS: WHITE BLOOD COUNT 5.6 10^3/ul (4.8-10.8)
[2019-03-25 06:46] LABS: ANION GAP 6 (5-13); BLOOD UREA NITROGEN 19 mg/dl (7-20); CALCIUM 8.7 mg/dl (8.4-10.2); CARBON DIOXIDE 22 mmol/L (21-31); CHLORIDE 112 mmol/L (97-110); CREATININE 1.18 mg/dl (0.61-1.24); GLUCOSE 110 mg/dl (70-220); POTASSIUM 4.1 mmol/L (3.5-5.1); SODIUM 140 mmol/L (135-144)
[2019-03-25] MEDS: DOCUSATE SODIUM 100 MG CAP PO ×2 (08:43→22:58)
[2019-03-25] MEDS: AMLODIPINE 10 MG TAB PO (08:43)
[2019-03-25] MEDS: FINASTERIDE 5 MG TAB PO (08:43)
[2019-03-25] MEDS: ALLOPURINOL 300 MG TAB PO (08:43)
[2019-03-25] MEDS: LACTULOSE 30ML CUP PO (08:43)
[2019-03-25] MEDS: LISINOPRIL 20 MG TAB PO (08:44)
[2019-03-25] MEDS: TAMSULOSIN (SR) 0.4 MG CAP PO (22:58)
[2019-03-25] MEDS: ALPRAZOLAM 0.5 MG TAB PO (23:01)
[2019-03-26 05:01] LABS: ADD MAN DIFF? NO
[2019-03-26 05:13] LABS: WHITE BLOOD COUNT 6.8 10^3/ul (4.8-10.8)
[2019-03-26 05:13] LABS: BASOPHILS % 0.6 % (0.0-2.0); EOSINOPHILS # 0.2 10^3/ul (0.0-0.5); EOSINOPHILS % 2.8 % (0.0-7.0); HEMATOCRIT 32.1 % (42.0-52.0); HEMOGLOBIN 10.3 g/dl (14.0-18.0); LYMPHOCYTES # 1.6 10^3/ul (0.8-2.9); LYMPHOCYTES % 23.8 % (15.0-51.0); MEAN CORPUSCULAR HEMOGLOBIN 26.2 pg (29.0-33.0); MEAN CORPUSCULAR HGB CONC 32.1 g/dl (32.0-37.0); MEAN CORPUSCULAR VOLUME 81.7 fl (82.0-101.0); MONOCYTE # 0.4 10^3/ul (0.3-0.9); MONOCYTES % 6.5 % (0.0-11.0); NEUTROPHIL # 4.4 10^3/ul (1.6-7.5); NEUTROPHILS % 65.1 % (39.0-77.0); PLATELET COUNT 157 10^3/UL (140-415); RED BLOOD COUNT 3.93 10^6/ul (4.70-6.10); RED CELL DISTRIBUTION WIDTH 16.8 % (11.5-14.5)
[2019-03-26 05:46] LABS: ANION GAP 8 (5-13); BLOOD UREA NITROGEN 19 mg/dl (7-20); CALCIUM 9.1 mg/dl (8.4-10.2); CARBON DIOXIDE 23 mmol/L (21-31); CHLORIDE 109 mmol/L (97-110); CREATININE 1.38 mg/dl (0.61-1.24); GLUCOSE 100 mg/dl (70-220); POTASSIUM 4.2 mmol/L (3.5-5.1); SODIUM 140 mmol/L (135-144)
[2019-03-26] MEDS: MAGNESIUM HYDROXIDE 30ML CUP PO (05:55)
[2019-03-26] MEDS: CIPROFLOXACIN 500 MG TAB PO ×2 (05:55→18:26)
[2019-03-26] MEDS: LACTULOSE 30ML CUP PO (08:42)
[2019-03-26] MEDS: AMLODIPINE 10 MG TAB PO (08:42)
[2019-03-26] MEDS: ALLOPURINOL 300 MG TAB PO (08:42)
[2019-03-26] MEDS: LISINOPRIL 20 MG TAB PO (08:43)
[2019-03-26] MEDS: FINASTERIDE 5 MG TAB PO (08:43)
[2019-03-26] MEDS: DOCUSATE SODIUM 100 MG CAP PO ×2 (08:43→21:00)
[2019-03-27] MEDS: TAMSULOSIN (SR) 0.4 MG CAP PO ×2 (00:18→21:11)
[2019-03-27] MEDS: ALPRAZOLAM 0.5 MG TAB PO ×2 (00:20→23:42)
[2019-03-27 05:38] LABS: ADD MAN DIFF? NO
[2019-03-27] MEDS: CIPROFLOXACIN 500 MG TAB PO ×2 (05:40→18:30)
[2019-03-27 05:43] LABS: ABNORMAL IP MESSAGE 1; BASOPHIL # 0.1 10^3/ul (0.0-0.1); BASOPHILS % 0.8 % (0.0-2.0); EOSINOPHILS # 0.2 10^3/ul (0.0-0.5); EOSINOPHILS % 3.5 % (0.0-7.0); HEMATOCRIT 31.7 % (42.0-52.0); HEMOGLOBIN 10.1 g/dl (14.0-18.0); LYMPHOCYTES # 1.6 10^3/ul (0.8-2.9); LYMPHOCYTES % 25.1 % (15.0-51.0); MEAN CORPUSCULAR HEMOGLOBIN 26.3 pg (29.0-33.0); MEAN CORPUSCULAR HGB CONC 31.9 g/dl (32.0-37.0); MEAN CORPUSCULAR VOLUME 82.6 fl (82.0-101.0); MEAN PLATELET VOLUME 13.2 fl (7.4-10.4); MONOCYTE # 0.4 10^3/ul (0.3-0.9); MONOCYTES % 6.9 % (0.0-11.0); NEUTROPHILS % 62.8 % (39.0-77.0); PLATELET COUNT 150 10^3/UL (140-415); POSITIVE DIFF @See below; RED BLOOD COUNT 3.84 10^6/ul (4.70-6.10)
[2019-03-27 05:43] LABS: WHITE BLOOD COUNT 6.3 10^3/ul (4.8-10.8)
[2019-03-27 06:19] LABS: ANION GAP 6 (5-13); BLOOD UREA NITROGEN 22 mg/dl (7-20); CARBON DIOXIDE 24 mmol/L (21-31); CHLORIDE 110 mmol/L (97-110); CREATININE 1.35 mg/dl (0.61-1.24); GLUCOSE 101 mg/dl (70-220); POTASSIUM 4.2 mmol/L (3.5-5.1); SODIUM 140 mmol/L (135-144)
[2019-03-27] MEDS: LACTULOSE 30ML CUP PO (09:00)
[2019-03-27] MEDS: ALLOPURINOL 300 MG TAB PO (09:47)
[2019-03-27] MEDS: DOCUSATE SODIUM 100 MG CAP PO ×2 (09:47→21:11)
[2019-03-27] MEDS: FINASTERIDE 5 MG TAB PO (09:47)
[2019-03-27] MEDS: AMLODIPINE 10 MG TAB PO (09:48)
[2019-03-27] MEDS: LISINOPRIL 20 MG TAB PO (09:48)
[2019-03-27 17:54] LABS: ADD MAN DIFF? NO
[2019-03-27 17:57] LABS: ABNORMAL IP MESSAGE 1; BASOPHILS % 0.3 % (0.0-2.0); EOSINOPHILS # 0.2 10^3/ul (0.0-0.5); EOSINOPHILS % 2.6 % (0.0-7.0); HEMATOCRIT 32.6 % (42.0-52.0); HEMOGLOBIN 10.4 g/dl (14.0-18.0); LYMPHOCYTES # 1.4 10^3/ul (0.8-2.9); MEAN CORPUSCULAR HEMOGLOBIN 26.8 pg (29.0-33.0); MEAN CORPUSCULAR HGB CONC 31.9 g/dl (32.0-37.0); MEAN PLATELET VOLUME 12.2 fl (7.4-10.4); MONOCYTE # 0.4 10^3/ul (0.3-0.9); MONOCYTES % 6.3 % (0.0-11.0); NEUTROPHIL # 4.4 10^3/ul (1.6-7.5); NEUTROPHILS % 67.7 % (39.0-77.0); PLATELET COUNT 147 10^3/UL (140-415); POSITIVE DIFF @See below; RED BLOOD COUNT 3.88 10^6/ul (4.70-6.10); RED CELL DISTRIBUTION WIDTH 17.1 % (11.5-14.5)
[2019-03-27 17:57] LABS: WHITE BLOOD COUNT 6.5 10^3/ul (4.8-10.8)
[2019-03-27 18:18] LABS: INR 1.06; PROTIME 13.9 Sec (11.9-14.9); PT RATIO 1.1
[2019-03-27 18:19] LABS: PARTIAL THROMBOPLASTIN TIME 37.1 Sec (23.0-35.0)
[2019-03-27 18:22] LABS: D-DIMER 775.32 ng/ml (<460)
[2019-03-28 05:32] LABS: ADD MAN DIFF? NO
[2019-03-28 05:40] LABS: BASOPHILS % 0.5 % (0.0-2.0); EOSINOPHILS # 0.2 10^3/ul (0.0-0.5); EOSINOPHILS % 3.2 % (0.0-7.0); HEMATOCRIT 31.8 % (42.0-52.0); LYMPHOCYTES # 1.9 10^3/ul (0.8-2.9); LYMPHOCYTES % 28.7 % (15.0-51.0); MEAN CORPUSCULAR HEMOGLOBIN 26.5 pg (29.0-33.0); MEAN CORPUSCULAR HGB CONC 31.4 g/dl (32.0-37.0); MEAN CORPUSCULAR VOLUME 84.1 fl (82.0-101.0); MEAN PLATELET VOLUME 12.4 fl (7.4-10.4); MONOCYTE # 0.5 10^3/ul (0.3-0.9); NEUTROPHIL # 3.8 10^3/ul (1.6-7.5); NEUTROPHILS % 58.4 % (39.0-77.0); PLATELET COUNT 133 10^3/UL (140-415); RED BLOOD COUNT 3.78 10^6/ul (4.70-6.10); RED CELL DISTRIBUTION WIDTH 16.9 % (11.5-14.5)
[2019-03-28 05:40] LABS: WHITE BLOOD COUNT 6.5 10^3/ul (4.8-10.8)
[2019-03-28 05:56] LABS: INR 1.03; PROTIME 13.6 Sec (11.9-14.9); PT RATIO 1.1
[2019-03-28 05:57] LABS: PARTIAL THROMBOPLASTIN TIME 38.4 Sec (23.0-35.0)
[2019-03-28 05:59] LABS: D-DIMER 654.71 ng/ml (<460)
[2019-03-28] MEDS: CIPROFLOXACIN 500 MG TAB PO ×2 (06:23→17:36)
[2019-03-28] MEDS: FINASTERIDE 5 MG TAB PO (09:18)
[2019-03-28] MEDS: ALLOPURINOL 300 MG TAB PO (09:18)
[2019-03-28] MEDS: FERROUS SULFATE (EC) 325 MG TAB PO ×2 (09:18→20:10)
[2019-03-28] MEDS: DOCUSATE SODIUM 100 MG CAP PO ×2 (09:18→20:10)
[2019-03-28] MEDS: LISINOPRIL 20 MG TAB PO (09:19)
[2019-03-28] MEDS: AMLODIPINE 10 MG TAB PO (09:19)
[2019-03-28] MEDS: LACTULOSE 30ML CUP PO (09:20)
[2019-03-28] MEDS: TAMSULOSIN (SR) 0.4 MG CAP PO (20:10)
[2019-03-28] MEDS: ALPRAZOLAM 0.5 MG TAB PO (22:34)
[2019-03-29 05:15] LABS: ADD MAN DIFF? NO
[2019-03-29 05:19] LABS: WHITE BLOOD COUNT 5.9 10^3/ul (4.8-10.8)
[2019-03-29 05:19] LABS: ABNORMAL IP MESSAGE 1; BASOPHILS % 0.3 % (0.0-2.0); EOSINOPHILS # 0.2 10^3/ul (0.0-0.5); EOSINOPHILS % 3.7 % (0.0-7.0); HEMATOCRIT 31.9 % (42.0-52.0); LYMPHOCYTES # 1.7 10^3/ul (0.8-2.9); MEAN CORPUSCULAR HEMOGLOBIN 26.6 pg (29.0-33.0); MEAN CORPUSCULAR HGB CONC 31.3 g/dl (32.0-37.0); MEAN CORPUSCULAR VOLUME 84.8 fl (82.0-101.0); MEAN PLATELET VOLUME 13.1 fl (7.4-10.4); MONOCYTE # 0.5 10^3/ul (0.3-0.9); MONOCYTES % 8.9 % (0.0-11.0); NEUTROPHIL # 3.4 10^3/ul (1.6-7.5); NEUTROPHILS % 57.4 % (39.0-77.0); PLATELET COUNT 141 10^3/UL (140-415); POSITIVE DIFF @See below; RED BLOOD COUNT 3.76 10^6/ul (4.70-6.10)
[2019-03-29 05:40] LABS: ANION GAP 8 (5-13); BLOOD UREA NITROGEN 28 mg/dl (7-20); CALCIUM 8.7 mg/dl (8.4-10.2); CARBON DIOXIDE 24 mmol/L (21-31); CHLORIDE 111 mmol/L (97-110); CREATININE 1.49 mg/dl (0.61-1.24); GLUCOSE 99 mg/dl (70-220); POTASSIUM 4.4 mmol/L (3.5-5.1); SODIUM 143 mmol/L (135-144)
[2019-03-29] MEDS: CIPROFLOXACIN 500 MG TAB PO ×2 (05:50→18:02)
[2019-03-29] MEDS: LACTULOSE 30ML CUP PO (09:10)
[2019-03-29] MEDS: ALLOPURINOL 300 MG TAB PO (09:10)
[2019-03-29] MEDS: FERROUS SULFATE (EC) 325 MG TAB PO ×2 (09:10→20:27)
[2019-03-29] MEDS: FINASTERIDE 5 MG TAB PO (09:10)
[2019-03-29] MEDS: DOCUSATE SODIUM 100 MG CAP PO ×2 (09:11→20:27)
[2019-03-29] MEDS: AMLODIPINE 10 MG TAB PO (09:11)
[2019-03-29] MEDS: LISINOPRIL 20 MG TAB PO (09:11)
[2019-03-29] MEDS: TAMSULOSIN (SR) 0.4 MG CAP PO (20:27)
[2019-03-29] MEDS: ALPRAZOLAM 0.5 MG TAB PO (22:39)
[2019-03-30 04:59] LABS: ADD MAN DIFF? NO; BASOPHILS % 0.5 % (0.0-2.0); EOSINOPHILS # 0.2 10^3/ul (0.0-0.5); EOSINOPHILS % 3.9 % (0.0-7.0); HEMATOCRIT 32.1 % (42.0-52.0); HEMOGLOBIN 10.1 g/dl (14.0-18.0); LYMPHOCYTES # 1.5 10^3/ul (0.8-2.9); LYMPHOCYTES % 26.3 % (15.0-51.0); MEAN CORPUSCULAR HEMOGLOBIN 26.1 pg (29.0-33.0); MEAN CORPUSCULAR HGB CONC 31.5 g/dl (32.0-37.0); MEAN CORPUSCULAR VOLUME 82.9 fl (82.0-101.0); MONOCYTE # 0.5 10^3/ul (0.3-0.9); NEUTROPHIL # 3.4 10^3/ul (1.6-7.5); NEUTROPHILS % 60.6 % (39.0-77.0); PLATELET COUNT 133 10^3/UL (140-415); RED BLOOD COUNT 3.87 10^6/ul (4.70-6.10)
[2019-03-30 04:59] LABS: WHITE BLOOD COUNT 5.6 10^3/ul (4.8-10.8)
[2019-03-30] MEDS: CIPROFLOXACIN 500 MG TAB PO ×2 (05:18→17:42)
[2019-03-30 05:19] LABS: ANION GAP 8 (5-13); BLOOD UREA NITROGEN 24 mg/dl (7-20); CALCIUM 8.6 mg/dl (8.4-10.2); CARBON DIOXIDE 22 mmol/L (21-31); CHLORIDE 112 mmol/L (97-110); CREATININE 1.18 mg/dl (0.61-1.24); GLUCOSE 96 mg/dl (70-220); POTASSIUM 4.2 mmol/L (3.5-5.1); SODIUM 142 mmol/L (135-144)
[2019-03-30] MEDS: LACTULOSE 30ML CUP PO (08:44)
[2019-03-30] MEDS: DOCUSATE SODIUM 100 MG CAP PO ×2 (08:44→21:04)
[2019-03-30] MEDS: FERROUS SULFATE (EC) 325 MG TAB PO ×2 (08:44→21:04)
[2019-03-30] MEDS: LISINOPRIL 20 MG TAB PO (08:45)
[2019-03-30] MEDS: ALLOPURINOL 300 MG TAB PO (08:45)
[2019-03-30] MEDS: AMLODIPINE 10 MG TAB PO (08:46)
[2019-03-30] MEDS: FINASTERIDE 5 MG TAB PO (08:46)
[2019-03-30] MEDS: TAMSULOSIN (SR) 0.4 MG CAP PO (21:04)
[2019-03-30] MEDS: ALPRAZOLAM 0.5 MG TAB PO (22:57)
[2019-03-31 04:56] LABS: ADD MAN DIFF? NO
[2019-03-31 04:59] LABS: WHITE BLOOD COUNT 6.2 10^3/ul (4.8-10.8)
[2019-03-31 04:59] LABS: BASOPHILS % 0.7 % (0.0-2.0); EOSINOPHILS # 0.2 10^3/ul (0.0-0.5); EOSINOPHILS % 3.7 % (0.0-7.0); HEMATOCRIT 33.4 % (42.0-52.0); HEMOGLOBIN 10.3 g/dl (14.0-18.0); LYMPHOCYTES # 1.7 10^3/ul (0.8-2.9); LYMPHOCYTES % 27.6 % (15.0-51.0); MEAN CORPUSCULAR HEMOGLOBIN 26.3 pg (29.0-33.0); MEAN CORPUSCULAR HGB CONC 30.8 g/dl (32.0-37.0); MEAN CORPUSCULAR VOLUME 85.2 fl (82.0-101.0); MEAN PLATELET VOLUME 12.2 fl (7.4-10.4); MONOCYTE # 0.5 10^3/ul (0.3-0.9); MONOCYTES % 7.8 % (0.0-11.0); NEUTROPHIL # 3.7 10^3/ul (1.6-7.5); NEUTROPHILS % 59.5 % (39.0-77.0); PLATELET COUNT 126 10^3/UL (140-415); RED BLOOD COUNT 3.92 10^6/ul (4.70-6.10)
[2019-03-31 05:23] LABS: ANION GAP 7 (5-13); BLOOD UREA NITROGEN 25 mg/dl (7-20); CALCIUM 8.7 mg/dl (8.4-10.2); CARBON DIOXIDE 24 mmol/L (21-31); CHLORIDE 111 mmol/L (97-110); CREATININE 1.46 mg/dl (0.61-1.24); GLUCOSE 97 mg/dl (70-220); POTASSIUM 4.7 mmol/L (3.5-5.1); SODIUM 142 mmol/L (135-144)
[2019-03-31] MEDS: CIPROFLOXACIN 500 MG TAB PO ×2 (06:09→17:45)
[2019-03-31] MEDS: AMLODIPINE 10 MG TAB PO (08:29)
[2019-03-31] MEDS: FERROUS SULFATE (EC) 325 MG TAB PO ×2 (08:29→20:57)
[2019-03-31] MEDS: DOCUSATE SODIUM 100 MG CAP PO ×2 (08:30→20:57)
[2019-03-31] MEDS: LISINOPRIL 20 MG TAB PO (08:30)
[2019-03-31] MEDS: ALLOPURINOL 300 MG TAB PO (08:30)
[2019-03-31] MEDS: LACTULOSE 30ML CUP PO (08:30)
[2019-03-31] MEDS: FINASTERIDE 5 MG TAB PO (08:30)
[2019-03-31] MEDS: TAMSULOSIN (SR) 0.4 MG CAP PO (20:57)
[2019-03-31] MEDS: ALPRAZOLAM 0.5 MG TAB PO (23:01)
[2019-04-01 05:37] LABS: ADD MAN DIFF? NO
[2019-04-01 05:46] LABS: BASOPHILS % 0.5 % (0.0-2.0); EOSINOPHILS # 0.2 10^3/ul (0.0-0.5); HEMATOCRIT 31.1 % (42.0-52.0); HEMOGLOBIN 9.7 g/dl (14.0-18.0); LYMPHOCYTES # 1.8 10^3/ul (0.8-2.9); LYMPHOCYTES % 29.6 % (15.0-51.0); MEAN CORPUSCULAR HEMOGLOBIN 26.4 pg (29.0-33.0); MEAN CORPUSCULAR HGB CONC 31.2 g/dl (32.0-37.0); MEAN CORPUSCULAR VOLUME 84.5 fl (82.0-101.0); MEAN PLATELET VOLUME 13.6 fl (7.4-10.4); MONOCYTE # 0.4 10^3/ul (0.3-0.9); MONOCYTES % 6.8 % (0.0-11.0); NEUTROPHIL # 3.5 10^3/ul (1.6-7.5); NEUTROPHILS % 58.6 % (39.0-77.0); PLATELET COUNT 106 10^3/UL (140-415); RED BLOOD COUNT 3.68 10^6/ul (4.70-6.10); RED CELL DISTRIBUTION WIDTH 16.8 % (11.5-14.5)
[2019-04-01] MEDS: CIPROFLOXACIN 500 MG TAB PO (06:02)
[2019-04-01 06:10] LABS: ANION GAP 10 (5-13); BLOOD UREA NITROGEN 25 mg/dl (7-20); CALCIUM 8.5 mg/dl (8.4-10.2); CARBON DIOXIDE 21 mmol/L (21-31); CHLORIDE 109 mmol/L (97-110); CREATININE 1.18 mg/dl (0.61-1.24); GLUCOSE 114 mg/dl (70-220); SODIUM 140 mmol/L (135-144)
[2019-04-01] MEDS: FINASTERIDE 5 MG TAB PO (09:03)
[2019-04-01] MEDS: ALLOPURINOL 300 MG TAB PO (09:03)
[2019-04-01] MEDS: LACTULOSE 30ML CUP PO (09:03)
[2019-04-01] MEDS: DOCUSATE SODIUM 100 MG CAP PO (09:03)
[2019-04-01] MEDS: LISINOPRIL 20 MG TAB PO (09:04)
[2019-04-01] MEDS: AMLODIPINE 10 MG TAB PO (09:04)
[2019-04-01] MEDS: FERROUS SULFATE (EC) 325 MG TAB PO (09:04)
== END 2019-04-01 17:37 | disposition home or self-care (01) | DRG 988 ==
LOC: ICU 03-23 09:24 → MS1 03-25 18:04 → E/R 01:55 → PP2 03:01
PROC: 0VB08ZZ Excision of Prostate, Via Natural or Artificial Opening Endoscopic (ICD-10-PCS; principal; 2019-03-21 09:00)
PROC: 0TJB8ZZ Inspection of Bladder, Via Natural or Artificial Opening Endoscopic (ICD-10-PCS; 2019-03-21 09:00)
PROC: 0TCB8ZZ Extirpation of Matter from Bladder, Via Natural or Artificial Opening Endoscopic (ICD-10-PCS; 2019-03-21 09:00)
PROC: 30233N1 Transfusion of Nonautologous Red Blood Cells into Peripheral Vein, Percutaneous Approach (ICD-10-PCS; 2019-03-21 09:00)
PROC: 0TPBX0Z Removal of Drainage Device from Bladder, External Approach (ICD-10-PCS; 2019-03-21 09:48)
PROC: 0T9B70Z Drainage of Bladder with Drainage Device, Via Natural or Artificial Opening (ICD-10-PCS; 2019-03-21 09:48)
DX: N99.820 Postprocedural hemorrhage of a genitourinary system organ or structure following a genitourinary system procedure (principal); D62 Acute posthemorrhagic anemia; D68.8 Other specified coagulation defects; N17.9 Acute kidney failure, unspecified; R31.0 Gross hematuria; D72.829 Elevated white blood cell count, unspecified; I10 Essential (primary) hypertension; M10.9 Gout, unspecified; N40.1 Benign prostatic hyperplasia with lower urinary tract symptoms; R39.198 Other difficulties with micturition; T83.021A Displacement of indwelling urethral catheter, initial encounter; Y83.8 Other surgical procedures as the cause of abnormal reaction of the patient, or of later complication, without mention of misadventure at the time of the procedure
CPT/HCPCS: 36415; 36430; 71046; 74176; 80048; 81001; 85014; 85018; 85025; 85335; 85378; 85384; 85576; 85610; 85730; 86644; 86850; 86900; 86901; 86920; 87081; 87086; 88304; 88305; 93005; 96374; 96375; 97116; 97162; 97530; 99285-25